=== PATIENT | female | born 1955 | race Caucasian/White ===

== ENCOUNTER → 2017-04-27 | Outpatient (CLI) | payer OTHER ==
[~2017-04-27] MED LIST: ACETAMINOPHEN PO; ASPIRIN81 MG PO; COREG12.5 M1 PO; COREG3.125 MG PO; CRESTOR PO; LEVOXYL50 MCG PO; NITROSTAT0.4 MG SL; PLAVIX PO; PRAVACHOL20 MG PO; YOSPRALA DR 811 EACH PO; ZESTRIL10 M1 PO
--- NOTE | ~2017-04-27 | ST ---
Unit #: [id number] #: [id number] Patient: JANET THAYER [id number] [facility]. [address] [address] [id number] O MR#: [id number] NAME: JANET THAYER : 1955 SEX: F STUDY DATE/TIME: 04/27/2017 UNIT: [facility] ROOM: STUDY DESCRIPTION: Exercise stress test Attending Physician: Mandeep Hammonds M.D. Referring Physician: Cyndy Cruz Primary Care Physician: No Primary Care Physician CARDIOLOGY REPORT PROCEDURE PERFORMED EKG portion of an exercise Cardiolite stress test. REASON FOR PROCEDURE Pain between the shoulder blades. PROCEDURE Baseline EKG shows sinus bradycardia with a rate of 57 beats per minute. The patient exercised on the treadmill according to the Shawn protocol for a total of 7 minutes. She achieved a work level of 8.5 METS. Maximal heart rate was 146 beats per minute, representing 91% of the maximal predicted heart rate. The patient's symptom was some shortness of air. No arrhythmias were noted. The test was stopped due to achieving heart rate. IMPRESSION 1. There were no ST-T wave changes. 2. Shortness of breath that resolved in recovery. 3. No arrhythmias. 4. Please correlate with Cardiolite imaging. Dictated by... Lana Almaguer M.D. AM/db TD: 04/27/2017 10:53 JOB #: [id number] CARDIOLOGY REPORT Page 1 of 1 X Idalmis Gee APRN CARDIOLOGY REPORT
--- NOTE | ~2017-04-27 | TH ---
Unit #: [id number] #: [id number] Patient: JANET THAYER [id number] [address] [address] [id number] O MR#: [id number] NAME: JANET THAYER : 1955 SEX: F STUDY DATE/TIME: 04/27/2017 UNIT: [facility] ROOM: STUDY DESCRIPTION: Exercise stress test - Nuclear Attending Physician: Mandeep Hammonds M.D. Referring Physician: Cyndy Cruz Primary Care Physician: No Primary Care Physician CARDIOLOGY REPORT PROCEDURE PERFORMED Exercise Cardiolite stress test - Nuclear portion. PROCEDURE Using technetium 99m-labeled Cardiolite, rest and stress SPECT images were obtained. Multiple SPECT images were obtained in various views, including horizontal and vertical long axis and short axis views of the left ventricle. Images were obtained by gated SPECT method. The patient was administered 11.25 mCi of Cardiolite at rest. The patient was administered 33.3 mCi of Cardiolite at peak exercise. Total exercise time is 7 minutes. On the stress images, there is a medium sized area of moderately decreased tracer uptake activity in the anteroapical wall. The rest images show a smaller area of mildly decreased tracer uptake activity anteroapically. Comparing the rest and stress images, there is suspicion for a small anteroapical myocardial infarction with possible moderate stress-induced ischemia. The left ventricular ejection fraction is calculated to be 69%. There is no focal wall motion abnormality seen. CONCLUSION 1. Suspicion for anteroapical myocardial infarction with moderate amount of melissa-infarct ischemia. 2. The left ventricular ejection fraction is calculated to be 69%. 3. There is no focal wall motion abnormality seen. 4. The left ventricular size is small. 5. Abnormal exercise Cardiolite stress test. Clinical correlation is requested. Dictated by... Darrius Olvera TD: 04/27/2017 13:26 JOB #: [id number] Unit #: [id number] #: [id number] Patient: JANET THAYER CARDIOLOGY REPORT Page 1 of 1 X Pamela Renteria MD <ELECTRONICALLY SIGNED> 05/05/17 1429 CARDIOLOGY REPORT
== END | disposition home or self-care (01) ==
LOC: CNUC 07:23
DX: I25.10 Atherosclerotic heart disease of native coronary artery without angina pectoris (principal); I10 Essential (primary) hypertension; I34.0 Nonrheumatic mitral (valve) insufficiency; Z98.61 Coronary angioplasty status; R94.39 Abnormal result of other cardiovascular function study
CPT/HCPCS: 78452; 93017; A9500

== ENCOUNTER → 2017-05-02 | Outpatient (CLI) | payer OTHER ==
[~2017-05-02] VITALS: Ht 170.2 cm; Wt 86.9 kg
--- NOTE | ~2017-05-02 | EKG ---
PATIENT: JANET THAYER UNIT #: [id number] Ventricular Rate: 53 BPM Atrial Rate: 53 BPM P-R Interval: 166 ms QRS Duration: 88 ms Q-T Interval: 430 ms QTC Calculation(Bezet): 403 ms P [place]: 34 degrees Calculated R [place]: 43 degrees Calculated T [place]: 43 degrees Diagnosis Line: Sinus bradycardia Diagnosis Line: Otherwise normal ECG Diagnosis Line: When compared with ECG of 11-FEB-2016 13:55, Diagnosis Line: No significant change was found Diagnosis Line: Confirmed by ARPIT MOYA MD ([id number]) on 05/03/2017 Diagnosis Line: 7:52:32 PM INTERPRETING MD: NITA CERVANTES
[2017-05-02 08:04] LABS: HEMATOCRIT 42.1 % (35.0-45.0); HEMOGLOBIN 13.6 gm/dL (12.0-16.0); MEAN CELL VOLUME 88.4 FL (83-96); MEAN CORPUSCULAR HEMOGLOBIN 28.6 PG (28-34); MEAN CORPUSCULAR HGB CONC 32.4 g/dL (30-36); RED BLOOD COUNT 4.76 X10e (3.90-5.30); RED CELL DISTRIBUTION WIDTH 14.2 % (11.0-15.5); WHITE BLOOD COUNT 8.1 X10e3 (4.0-10.5)
[2017-05-02 08:18] LABS: INR 0.9; PARTIAL THROMBOPLASTIN TIME 26.9 SECONDS (23.5-31.3); PROTHROMBIN TIME (PATIENT) 9.9 SECONDS (10.0-11.7)
[2017-05-02 08:28] LABS: BUN/CREATININE RATIO 13.33; CREATININE SERUM 0.9 mg/dL (0.6-1.4); GLOM FILT RATE Estimated 69.1 mL/min (>60); POTASSIUM 4.4 mmol/L (3.5-5.1)
== END | disposition home or self-care (01) ==
LOC: CCVL 07:31
PROVIDERS: Internal Medicine Cardiovascular Disease
PROC: 4A023N7 Measurement of Cardiac Sampling and Pressure, Left Heart, Percutaneous Approach (ICD-10-PCS; principal; 2017-05-02)
PROC: B211YZZ Fluoroscopy of Multiple Coronary Arteries using Other Contrast (ICD-10-PCS; 2017-05-02)
PROC: B215YZZ Fluoroscopy of Left Heart using Other Contrast (ICD-10-PCS; 2017-05-02)
DX: R07.9 Chest pain, unspecified (principal); I25.2 Old myocardial infarction; Z95.5 Presence of coronary angioplasty implant and graft; I10 Essential (primary) hypertension; Z87.891 Personal history of nicotine dependence
CPT/HCPCS: 36415; 80048; 85027; 85610; 85730; 93005; C1769; C1887; C1894; J1644; J2250; J3010